=== PATIENT | female | born 1985 | race African-American/Black ===

== ENCOUNTER 2023-12-14 19:27 | Emergency (ER) | payer MEDICAID ==
[~2023-12-14] VITALS: Ht 181.6 cm; Wt 101.0 kg
[2023-12-14 19:29] VITALS: O2SAT 99
[2023-12-14 20:02] LABS: CLARITY URINE CLEAR (CLEAR); COLOR URINE YELLOW (YELLOW); GLUCOSE URINE NEGATIVE (NEGATIVE); KETONES URINE NEGATIVE (NEGATIVE); LEUKOCYTE ESTERASE URINE 1+ (NEGATIVE); NITRITE URINE NEGATIVE (NEGATIVE); OCCULT BLOOD URINE 1+ (NEGATIVE); PROTEIN URINE NEGATIVE (NEGATIVE); SPECIFIC GRAVITY URINE 1.019 (1.005-1.030)
[2023-12-14 20:15] LABS: BACTERIA URINE NONE SEEN; RBC URINE 0-2 /hpf (0-2); SQUAMOUS EPITHELIAL CELL URINE 1+ /lpf (RARE/1+); WBC URINE 0-2 /hpf (0-2)
[2023-12-14] MEDS: FAMOTIDINE 20MG/2ML VIAL IV STA (20:34)
[2023-12-14] MEDS: ONDANSETRON 4MG ODT PO STA (20:34)
[2023-12-14] MEDS: MAGNESIUM/ALUMINUM HYDROXIDE/SIMETHICONE 30ML UDC PO STA (20:34)
[2023-12-14 22:19] LABS: BASOPHILS % 0.7 % (0.0-2.0); EOSINOPHILS % 0.1 % (0.0-5.0); HEMATOCRIT. 45.4 % (36.0-48.0); HEMOGLOBIN. 15.6 g/dL (12.0-16.0); LYMPHOCYTES % 17.7 % (20.0-50.0); MEAN CORPUSCULAR HEMOGLOBIN 30.8 pg (28.0-32.0); MEAN CORPUSCULAR HGB CONC 34.4 g/dL (31.0-37.0); MEAN CORPUSCULAR VOLUME 89.6 fL (81.0-99.0); MEAN PLATELET VOLUME 7.6 fl (7.4-10.4); MONOCYTES % 9.6 % (2.0-8.0); NEUTROPHILS % 71.9 % (40.0-76.0); PLATELET 303 x1000/uL (130-400); RED BLOOD CELL COUNT 5.06 mill/uL (4.2-5.4); WHITE BLOOD COUNT 6.9 x1000/uL (4.5-11.0)
[2023-12-14 22:48] LABS: ALANINE AMINOTRANSFERASE 137 IU/L (10-49); ALBUMIN 4.9 g/dL (3.2-4.8); ASPARTATE AMINOTRANSFERASE 84 IU/L (<34); BILIRUBIN TOTAL 0.7 mg/dL (0.1-1.0); CALCIUM 9.3 mg/dL (8.7-10.4); CARBON DIOXIDE 28 mEq/L (21-32); CHLORIDE 97 mEq/L (98-107); CREATININE 1.2 mg/dL (0.6-1.0); GLUCOSE 109 mg/dL (70-105); POTASSIUM 3.5 mEq/L (3.5-5.1); PROTEIN TOTAL 8.7 g/dL (6.0-8.3); SODIUM 135 mEq/L (136-145); UREA NITROGEN BLOOD 12 mg/dL (9-23)
[2023-12-14] MEDS: SODIUM CHLORIDE 0.9% 1,000 ML IV ONE (23:21)
[2023-12-14] MEDS: FAMOTIDINE 20MG/2ML VIAL IV ONE (23:21)
[2023-12-14] MEDS: ONDANSETRON HCL 4MG/2ML INJ IV ONE (23:21)
[2023-12-14] MEDS: MAGNESIUM/ALUMINUM HYDROXIDE/SIMETHICONE 30ML UDC PO ONE (23:22)
[2023-12-15] VITALS: BP 145/85; PULSE 82; RESP 19; TEMP 98.3
[2023-12-15] MEDS ORDERED: ONDA4TAB50 MT (00:08)
[2023-12-15] MEDS ORDERED: LISI-186 MT (00:08)
[2023-12-15] MEDS ORDERED: METO-396 MT (00:08)
[2023-12-15] MEDS ORDERED: FAMO-135 MT (00:08)
== END 2023-12-15 00:29 | disposition home or self-care (01) ==
LOC: ER 19:27
DX: K29.70 Gastritis, unspecified, without bleeding (principal); I10 Essential (primary) hypertension; G43.909 Migraine, unspecified, not intractable, without status migrainosus; Z90.89 Acquired absence of other organs
CPT/HCPCS: 80053; 81003; 81025; 85025; 36415; 93005; 96361; 96374; 96375; 99284; J3490; J2405; J7030; Z7610 ×2

== ENCOUNTER 2024-10-08 13:55 | Emergency (ER) | payer MEDICAID ==
[~2024-10-08] VITALS: Ht 180.3 cm; Wt 91.0 kg
[~2024-10-08 13:55] MED LIST: FAMO-135 MT; LISI-186 MT; METO-396 MT; ONDA4TAB50 MT
[2024-10-08 14:01] VITALS: O2SAT 100
[2024-10-08 16:30] LABS: BASOPHILS % 1.2 % (0.0-2.0); HEMOGLOBIN. 13.5 g/dL (12.0-16.0); LYMPHOCYTES % 17.8 % (20.0-50.0); MEAN CORPUSCULAR HEMOGLOBIN 32.3 pg (28.0-32.0); MEAN CORPUSCULAR HGB CONC 33.7 g/dL (31.0-37.0); MEAN CORPUSCULAR VOLUME 95.8 fL (81.0-99.0); PLATELET 231 x1000/uL (130-400); RED BLOOD CELL COUNT 4.18 mill/uL (4.2-5.4); RED CELL DISTRIBUTION WIDTH 14.7 % (11.6-14.6); WHITE BLOOD COUNT 3.3 x1000/uL (4.5-11.0)
[2024-10-08 16:44] LABS: CARBON DIOXIDE 26 mEq/L (21-32); CHLORIDE 100 mEq/L (98-107); POTASSIUM 4.3 mEq/L (3.5-5.1); SODIUM 136 mEq/L (136-145)
[2024-10-08 16:45] LABS: CALCIUM 10.1 mg/dL (8.7-10.4)
[2024-10-08 16:49] LABS: CREATININE 1.1 mg/dL (0.6-1.0)
[2024-10-08 16:50] LABS: GLUCOSE 99 mg/dL (70-105); UREA NITROGEN BLOOD 9 mg/dL (9-23)
[2024-10-08 16:52] LABS: ALANINE AMINOTRANSFERASE 394 IU/L (10-49); ALBUMIN 4.4 g/dL (3.2-4.8); ASPARTATE AMINOTRANSFERASE > 1000 IU/L (<34); BILIRUBIN TOTAL 1.4 mg/dL (0.1-1.0); PROTEIN TOTAL 8.1 g/dL (6.0-8.3); TROPONIN I HIGH SENSITIVITY < 4 ng/L (3.0-34)
[2024-10-08] MEDS ORDERED: ONDA-239 PO (17:48)
[2024-10-08 18:11] VITALS: BP 159/80; PULSE 92; RESP 22; TEMP 36.7; O2SAT 100
[2024-10-08] MEDS: LORAZEPAM 1MG TABLET PO ONE (18:11)
[2024-10-08] MEDS: ONDANSETRON 4MG ODT PO ONE (18:11)
== END 2024-10-08 18:13 | disposition home or self-care (01) ==
LOC: ER 14:07
DX: K29.70 Gastritis, unspecified, without bleeding (principal); F10.939 Alcohol use, unspecified with withdrawal, unspecified; Z79.899 Other long term (current) drug therapy; I10 Essential (primary) hypertension; Y90.9 Presence of alcohol in blood, level not specified
CPT/HCPCS: 99284; 80053; 83690; 85025; 84484; 36415; 93005; Q0162